=== PATIENT | male | born 1930 | race Caucasian/White ===

== ENCOUNTER 2021-12-05 11:45 | Outpatient (CLI) | payer MEDICARE ==
[2021-12-05 12:57] LABS: Hemoglobin 15.4 g/dL (13.5-17.5)
[2021-12-05 13:16] LABS: Anion Gap 13 mmol/L (10-20); BUN (Urea Nitrogen) 22 mg/dL (8.4-25.7); Calc. Creatinine Clearance 0 mL/min (70-130); Carbon Dioxide 20 mmol/L (23-31); Chloride 110 mmol/L (98-107); Estimated GFR 37; Glucose 108 mg/dL (83-110); Potassium 4.5 mmol/L (3.5-5.1); Sodium 138 mmol/L (136-145)
== END 2021-12-05 11:46 | disposition home or self-care (01) ==
LOC: LABBT 11:45
PROVIDERS: ATTEND Student in an Organized Health Care Education/Training Program
DX: Z01.818 Encounter for other preprocedural examination (principal); C44.91 Basal cell carcinoma of skin, unspecified; L98.9 Disorder of the skin and subcutaneous tissue, unspecified; C44.90 Unspecified malignant neoplasm of skin, unspecified; Z20.822 Contact with and (suspected) exposure to COVID-19
CPT/HCPCS: 80048; 85014; 85018; 87811; 93005; 93010

== ENCOUNTER 2021-12-10 09:03 | Day surgery (SDC) | payer MEDICARE ==
[2021-12-06 15:30] VITALS: BMI 23.0
[2021-12-10] MEDS ORDERED: fentaNYL Citrate/PF 100 MCG/2 ML SYRINGE ONE (10:50)
[2021-12-10] MEDS ORDERED: Bupivacaine/Epinephrine 0.25% 30 ML VIAL ONE (10:57)
[2021-12-10] MEDS ORDERED: Clindamycin/D5W 600 mg/50 ml Premix Bag ONE (11:05)
[2021-12-10] MEDS ORDERED: PROPOFOL 200 MG/20 ML VIAL ONE (11:12)
[2021-12-10] MEDS ORDERED: Dexamethasone 20 MG/5 ML VIAL ONE (11:12)
[2021-12-10] MEDS ORDERED: Ondansetron PF 4 MG/2 ML Vial ONE (11:12)
[2021-12-10] MEDS ORDERED: Lidocaine 1% MPF 2 ML VIAL ONE (11:12)
[2021-12-10] MEDS ORDERED: ePHEDrine 50 MG/ML VIAL ONE (11:12)
[2021-12-10] MEDS ORDERED: Rocuronium Bromide 10 MG/ML (10ML VIAL) ONE (11:12)
[2021-12-10] MEDS ORDERED: SUGAMMADEX SODIUM 200 MG/2 ML VIAL ONE (12:19)
== END 2021-12-10 15:18 | disposition home or self-care (01) ==
LOC: SDC 09:03
PROVIDERS: ATTEND Student in an Organized Health Care Education/Training Program
PROC: 0HB1XZZ Excision of Face Skin, External Approach (ICD-10-PCS; principal; 2021-12-10)
DX: C44.319 Basal cell carcinoma of skin of other parts of face (principal); Z79.82 Long term (current) use of aspirin; Z79.899 Other long term (current) drug therapy; Z88.0 Allergy status to penicillin; Z88.1 Allergy status to other antibiotic agents; Z88.8 Allergy status to other drugs, medicaments and biological substances
CPT/HCPCS: 88305; 88331; 88332; J1100; J2405; J2704; J3490